=== PATIENT | female | born 1990 | race Caucasian/White ===

== ENCOUNTER 2016-06-10 09:31 | Emergency (ER) | payer BC ==
[2016-06-10 10:31] VITALS: BP 126/83
--- NOTE | 2016-06-10 10:43 | UC ---
Eye Complaint HPI - HPI Summary HPI Summary: complaint of red itchy left eye that started last night this morning started to have purulent drainage from left eye denies pain and vision changes hasn't tried any medication for symptoms currently has URI- nasal congestion cough denies fever, N/V/D taking robitussin with relief of cough - History of Current Complaint Chief Complaint: UCEye Stated Complaint: LEFT EYE COMPLAINT Time Seen by Provider: 06/10/16 10:36 Hx Obtained From: Patient Hx Last Menstrual Period: unknown Aggravating Factor(s): Nothing Alleviating Factor(s): Nothing Associated Signs And Symptoms: Positive: Drainage (Purulent) - Allergies/Home Medications Allergies/Adverse Reactions: Allergies Allergy/AdvReac Type Severity Reaction Status Date / Time avoids opiates Allergy See Comment Uncoded 06/10/16 10:31 Home Medications: Home Medications Implanon 1 unit SUBCUT DAILY 06/10/16 [History Confirmed 06/10/16] PMH/Surg Hx/FS Hx/Imm Hx Previously Healthy: Yes Endocrine History Of: Denies: Diabetes, Thyroid Disease Cardiovascular History Of: Reports: Cardiac Disorders - Palpitations Denies: Hypertension Respiratory History Of: Reports: Asthma Denies: COPD GI/ History Of: Denies: Ulcer - Surgical History Surgical History: Yes Surgery Procedure, Year, and Place: x 1 - Family History Known Family History: Negative: Cardiac Disease, Hypertension, Diabetes - Social History Occupation: Employed Full-time Lives: With Family Alcohol Use: None Substance Use Type: Other Substance Use Comment - Amount & Last Used: Previous opiate addiction, injectables, 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 Smoking Status (MU): Never Smoked Tobacco - Immunization History Most Recent Influenza Vaccination: unknown Most Recent Tetanus Shot: unknown Most Recent Pneumonia Vaccination: none Review of Systems Constitutional: Negative Skin: Negative Eyes: Drainage, Eye Redness ENT: Nasal Discharge Respiratory: Cough Cardiovascular: Negative Gastrointestinal: Negative Genitourinary: Negative Motor: Negative Neurovascular: Negative Musculoskeletal: Negative Neurological: Negative Psychological: Negative All Other Systems Reviewed And Are Negative: Yes Physical Exam Triage Information Reviewed: Yes Appearance: No Pain Distress, Well-Nourished Vital Signs: Initial Vital Signs Temp 99.3 F 06/10/16 10:23 Pulse 62 06/10/16 10:23 Resp 18 06/10/16 10:23 BP 126/83 06/10/16 10:23 Vital Signs Reviewed: Yes Eyes: Positive: Conjunctiva Inflamed - left, Discharge - left ENT: Positive: Pharyngeal erythema, Nasal congestion, TMs normal Neck: Positive: No Lymphadenopathy Respiratory: Positive: Lungs clear, Normal breath sounds, No respiratory distress Cardiovascular: Positive: RRR, No Murmur, Pulses Normal Abdomen Description: Positive: Nontender, Soft Bowel Sounds: Positive: Present Musculoskeletal: Positive: No Edema Neurological: Positive: Alert Psychological Exam: Normal Skin Exam: Normal Eye Complaint Course/Dx - Differential Dx/Diagnosis Differential Diagnosis/HQI/PQRI: Conjunctivitis, Other - URI Provider Diagnoses: URI. conjunctivitis Discharge - Discharge Plan Condition: Stable Disposition: HOME Prescriptions: Tobramycin (Ophth) [Tobrex] 0.3 % OP Q6HR #1 matilde Patient Education Materials: Upper Respiratory Infection (ED), Conjunctivitis ( ED) Referrals: Piper Vogel MD [Medical Doctor] - Additional Instructions: CONJUNCTIVITIS What is Conjunctivitis? Conjunctivitis is redness and swelling of the conjunctiva, the thin transparent layer that lines the inner eyelid and covers the white part of the eye. The three main types of conjunctivitis are infectious, allergic, and chemical. The infectious type, commonly called "pink eye," is caused by a contagious virus or by bacteria. Your body's allergies to pollen, cosmetics, animals or fabrics often bring on allergic conjunctivitis. Irritants like air pollution, noxious fumes and chlorine in swimming pools may produce the chemical form. Symptoms Might Include: More tearing Eye pain Redness in the eyes Gritty feeling in the eyes Itching of the eye Blurred vision Sensitivity to light Crusts that form on the eyelid overnight Treatment Recommendations: Use eye drops or ointment as directed. Do not rub or touch your eyes. Wash your hands frequently. Use cool compresses to relieve pain and itching. Prevention: Do not share eye make-up. Replace eye make-up frequently. Do not share towels, washcloths, etc. Do not share eye drops. Disinfect and handle contact lenses properly. Call Your Doctor or Return Here IF: Your symptoms worsen or do not improve in 3 to 4 days. You have problems with, or loss of, your vision. You have a significant increase in pain. You have any new symptoms that worry you.
== END 2016-06-10 10:59 | disposition home or self-care (01) ==
LOC: UCCORT 09:31
DX: J06.9 Acute upper respiratory infection, unspecified (principal); H10.32 Unspecified acute conjunctivitis, left eye; Z88.5 Allergy status to narcotic agent
CPT/HCPCS: 99212; G0463

== ENCOUNTER 2016-07-27 09:35 | Emergency (ER) | payer BC ==
[2016-07-27 11:11] VITALS: BP 117/67
[2016-07-27] MEDS ORDERED: Albuterol/Ipratropium NEB.SOL* Albuterol 2.5 MG/Ipratropium 0.5 MG 3 ML INH ONE (11:23)
--- NOTE | 2016-07-27 11:23 | UC ---
Throat Pain/Nasal [place] HPI - HPI Summary HPI Summary: complaint of cough and nasal congestion that started approx 3 days ago productive cough- green sputum has felt feverish and some chills occasional body aches headaches- wheezing and coughing worse at night denies sore throat has been using advair has been using albuterol BID for the last 3 days has run out albuterol solution for her nebulizer - History of Current Complaint Chief Complaint: UCGeneralIllness Stated Complaint: head cold & body aches Time Seen by Provider: 07/27/16 11:16 Hx Obtained From: Patient Hx Last Menstrual Period: 01/2015 - has implanon - Allergies/Home Medications Allergies/Adverse Reactions: Allergies Allergy/AdvReac Type Severity Reaction Status Date / Time avoids opiates Allergy See Comment Uncoded 07/27/16 11:04 Home Medications: Home Medications Albuterol HFA INHALER* [Ventolin HFA Inhaler*] 1 - 2 puff INH Q6H PRN 07/27/16 [ History Confirmed 07/27/16] Fluticasone-Salmeterol 100-50* [Advair Diskus 100-50*] 1 puff INH BEDTIME [History Confirmed 07/27/16] PMH/Surg Hx/FS Hx/Imm Hx Previously Healthy: Yes Endocrine History Of: Denies: Diabetes, Thyroid Disease Cardiovascular History Of: Reports: Cardiac Disorders - Palpitations Denies: Hypertension Respiratory History Of: Reports: Asthma Denies: COPD GI/ History Of: Denies: Ulcer - Surgical History Surgical History: Yes Surgery Procedure, Year, and Place: x 1 - Family History Known Family History: Negative: Cardiac Disease, Hypertension, Diabetes - Social History Alcohol Use: None Substance Use Type: None, Other Substance Use Comment - Amount & Last Used: Previous opiate addiction, injectables, 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 Smoking Status (MU): Never Smoked Tobacco - Immunization History Most Recent Influenza Vaccination: unknown Most Recent Tetanus Shot: unknown Most Recent Pneumonia Vaccination: none Review of Systems Constitutional: Fever, Chills Skin: Negative Eyes: Negative ENT: Nasal Discharge Respiratory: Cough Cardiovascular: Negative Gastrointestinal: Negative Genitourinary: Negative Motor: Negative Neurovascular: Negative Musculoskeletal: Negative Neurological: Headache Psychological: Negative All Other Systems Reviewed And Are Negative: Yes Physical Exam Triage Information Reviewed: Yes Appearance: No Pain Distress, Well-Nourished Vital Signs: Initial Vital Signs Temp 98.7 F 07/27/16 11:05 Pulse 73 07/27/16 11:05 Resp 16 07/27/16 11:05 BP 117/67 07/27/16 11:05 Pulse Ox 98 07/27/16 11:05 Vital Signs Reviewed: Yes Eyes: Positive: Conjunctiva Clear ENT: Positive: Pharyngeal erythema, Nasal congestion, Nasal drainage, TMs normal Neck: Positive: No Lymphadenopathy Respiratory: Positive: Rhonchi - in BLL, Wheezing - throughout all lung willis Cardiovascular: Positive: RRR, No Murmur, Pulses Normal Abdomen Description: Positive: Nontender, Soft, Bruit Bowel Sounds: Positive: Present Musculoskeletal Exam: Normal Neurological Exam: Normal Psychological Exam: Normal Skin Exam: Normal Throat Pain/Nasal Course/Dx - Differential Dx/Diagnosis Differential Diagnosis/HQI/PQRI: Influenza, Sinusitis, Tonsillitis, Other - asthma exacerbation Provider Diagnoses: asthma exacerbation Discharge - Discharge Plan Condition: Stable Disposition: HOME Prescriptions: Albuterol 2.5MG/3ML (0.083%)* [Ventolin 2.5 MG/3 ML NEB.ANA MARIA*] 2.5 mg INH Q4H PRN #100 neb.ana maria PRN Reason: Wheezing Albuterol HFA INHALER* [Ventolin HFA Inhaler*] 2 puff INH Q4H PRN #1 mdi PRN Reason: Wheezing Azithromycin TAB* [Zithromax TAB (Z-ANDRES) 250 mg #6 tabs] 2 tab PO .TODAY, THEN 1 DAILY #1 andres predniSONE TAB* [Deltasone TAB*] 50 mg PO DAILY #5 tab Patient Education Materials: Asthma (ED) Referrals: Piper Vogel MD [Primary Care Provider] - Additional Instructions: Please take antibiotic and prednsione as directed Use your albuterol inhaler every 4-6 hours when needed for wheezing, shortness of breath or uncontrolled coughing. Increase fluids and rest Take acetaminophen or ibuprofen for fever or pain Please review your discharge instructions. If your symptoms do not improve please call your primary care provider or return to urgent care.
== END 2016-07-27 12:02 | disposition home or self-care (01) ==
LOC: UCCORT 09:35
DX: J45.901 Unspecified asthma with (acute) exacerbation (principal); Z88.5 Allergy status to narcotic agent; R00.2 Palpitations
CPT/HCPCS: 99212; A9270-GY; G0463

== ENCOUNTER 2016-10-14 10:44 | Emergency (ER) | payer BC ==
--- NOTE | 2016-10-14 11:03 | UC ---
Back Pain HPI - HPI Summary HPI Summary: 26 year old female presents with complains of right sided lower back pain. - History of Current Complaint Stated Complaint: LOWER BACK PAIN Time Seen by Provider: 10/14/16 11:02 Hx Last Menstrual Period: 01/2015 - has implanon - Allergies/Home Medications Allergies/Adverse Reactions: Allergies Allergy/AdvReac Type Severity Reaction Status Date / Time avoids opiates Allergy See Comment Uncoded 10/14/16 11:14 PMH/Surg Hx/FS Hx/Imm Hx - Surgical History Surgical History: Yes Surgery Procedure, Year, and Place: x 1 - Family History Known Family History: Negative: Cardiac Disease, Hypertension, Diabetes - Social History Alcohol Use: None Substance Use Type: None, Other Substance Use Comment - Amount & Last Used: Previous opiate addiction, injectables, 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 Smoking Status (MU): Never Smoked Tobacco - Immunization History Most Recent Influenza Vaccination: unknown Most Recent Tetanus Shot: unknown Most Recent Pneumonia Vaccination: none Review of Systems Constitutional: Negative Skin: Negative Eyes: Negative ENT: Negative Respiratory: Negative Cardiovascular: Negative Gastrointestinal: Negative Genitourinary: Negative Motor: Negative Neurovascular: Negative Musculoskeletal: Other: - right SI joint pain Neurological: Negative Psychological: Negative All Other Systems Reviewed And Are Negative: Yes Physical Exam Triage Information Reviewed: Yes Eye Exam: Normal ENT Exam: Normal Dental Exam: Normal Neck exam: Normal Neck: Positive: 1 Respiratory Exam: Normal Cardiovascular Exam: Normal Abdominal Exam: Normal Musculoskeletal Exam: Normal Musculoskeletal: Positive: Other: - right si joint pain Neurological Exam: Normal Psychological Exam: Normal Skin Exam: Normal Back Pain Course/Dx - Differential Dx/Diagnosis Provider Diagnoses: right SI joint pain Discharge - Discharge Plan Condition: Stable Disposition: HOME Prescriptions: Methocarbamol [Robaxin-750 MG TAB] 750 mg PO Q8H PRN #30 tab PRN Reason: Spasms - Back Methylprednisolone [Medrol Dosepak 4 MG*] 4 mg PO .SEE ANDRES INSTRUCTION #21 tab Patient Education Materials: Acute Low Back Pain (ED) Forms: *Work Release Referrals: Piper Vogel MD [Medical Doctor] - If Needed
[2016-10-14 11:14] VITALS: BP 121/72
[2016-10-14] MEDS ORDERED: methylPREDNISolone 125 MG* 2 ML VIAL IM ONE (11:22)
== END 2016-10-14 11:58 | disposition home or self-care (01) ==
LOC: UCCORT 10:44
DX: M53.3 Sacrococcygeal disorders, not elsewhere classified (principal)
CPT/HCPCS: 96372; 99212; G0463; J2930

== ENCOUNTER 2016-12-18 15:28 | Emergency (ER) | payer BC ==
[2016-12-18 15:53] VITALS: BP 116/55
--- NOTE | 2016-12-18 16:52 | UC ---
Skin Complaint HPI - HPI Summary HPI Summary: Patient presents to the with concern over left lateral leg infection after sustaining a injury with potential FB. She sustained this injury 5 days ago while at work. She states a large piece of wood went through her right lateral lower leg. Penetrated the anterior side and exited the posterior side. She was seen in the ED who dislodged the FB and placed her on 7 days keflex. No imaging was performed. Today she states the area continues to become swollen with her ankle swelling as well. The area had worsening redness yesterday per pictures, but was improved today. She states the swelling and redness are worse after working and standing on her feet all day. The area over the redness is slightly indurated. No drainage is noted. - History of Current Complaint Hx Obtained From: Patient Hx Last Menstrual Period: unknown, implanon ?: No Onset/Duration: Sudden Onset Skin Exposure Onset/Duration: Hours Ago Timing: Constant Onset Severity: Moderate Current Severity: Moderate Pain Intensity: 5 Pain Scale Used: 0-10 Numeric Location: Discrete Character: Redness, Raised, Painful Aggravating Factor(s): Nothing Alleviating Factor(s): Nothing Associated Signs & Symptoms: Positive: Bruising, Tenderness Related History: Trauma, Foreign Body <Julisa Dugan - Last Filed: 12/18/16 17:29> <Mirta Gonzalez - Last Filed: 12/19/16 20:15> - History of Current Complaint Chief Complaint: UCLowerExtremity Time Seen by Provider: 12/18/16 15:54 Stated Complaint: RIGHT LEG INJURY - Allergy/Home Medications Allergies/Adverse Reactions: Allergies Allergy/AdvReac Type Severity Reaction Status Date / Time avoids opiates Allergy See Comment Uncoded 12/18/16 15:53 Home Medications: Home Medications Cephalexin CAP* [Keflex CAP*] 500 mg PO BID 12/18/16 [History Confirmed 12/18/16 ] Review of Systems Constitutional: Negative Skin: Other - see hpi Eyes: Negative Respiratory: Negative Cardiovascular: Negative Motor: Negative Neurovascular: Negative Musculoskeletal: Arthralgia Neurological: Negative Psychological: Negative Is Patient Immunocompromised?: No All Other Systems Reviewed And Are Negative: Yes <Julisa Dugan - Last Filed: 12/18/16 17:29> PMH/Surg Hx/FS Hx/Imm Hx Previously Healthy: Yes - Surgical History Surgical History: Yes Surgery Procedure, Year, and Place: x 1 - Family History Known Family History: Negative: Cardiac Disease, Hypertension, Diabetes - Social History Occupation: Employed Full-time Alcohol Use: None Substance Use Type: None, Other Substance Use Comment - Amount & Last Used: Previous opiate addiction, injectables, 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 Smoking Status (MU): Never Smoked Tobacco Have You Smoked in the Last Year: No - Immunization History Most Recent Influenza Vaccination: unknown Most Recent Tetanus Shot: 12/13/16 Most Recent Pneumonia Vaccination: none <Julisa Dugan Peter - Last Filed: 12/18/16 17:29> Physical Exam Triage Information Reviewed: Yes Appearance: Well-Appearing, Well-Nourished Vital Signs: Initial Vital Signs Temp 98.2 F 12/18/16 15:47 Pulse 67 12/18/16 15:47 Resp 16 12/18/16 15:47 BP 116/55 12/18/16 15:47 Pulse Ox 100 12/18/16 15:47 Vital Signs Reviewed: Yes Eye Exam: Normal Eyes: Positive: Conjunctiva Clear Neck exam: Normal Neck: Positive: Supple, No Lymphadenopathy Respiratory Exam: Normal Respiratory: Positive: Chest non-tender, Lungs clear Abdominal Exam: Normal Abdomen Description: Positive: Nontender Musculoskeletal Exam: Normal Musculoskeletal: Positive: Strength Intact Neurological: Positive: Alert Psychological: Positive: Normal Response To Family, Age Appropriate Behavior Skin: Positive: Other - see HPI <Julisa Dugan Peter - Last Filed: 12/18/16 17:29> Vital Signs: Initial Vital Signs Temp 98.2 F 12/18/16 15:47 Pulse 67 12/18/16 15:47 Resp 16 12/18/16 15:47 BP 116/55 12/18/16 15:47 Pulse Ox 100 12/18/16 15:47 <Mirta Gonzalez - Last Filed: 12/19/16 20:15> Course/Dx - Course Course Of Treatment: Patient is evaluated for leg infection. D/t swelling, bruising and redness, she is given an extra 5 days of keflex. Likely FB remains. No image was taken. She is encouraged to come back to 3-4 days only if symptoms fail to improve with rest, ice and abx. She is Ok with this plan. It was discussed with patient she may need imaging and furhter antibiotics if symptoms persist. The area of induration is small, but may enlarge - return precuations given. - Differential Diagnoses - Skin Complaint Differential Diagnoses: Other - FB, cellulitis - Diagnoses Provider Diagnoses: Cellulitis <Julisa Dugan - Last Filed: 12/18/16 17:29> Discharge <Julisa Dugan - Last Filed: 12/18/16 17:29> <Mirta Gonzalez - Last Filed: 12/19/16 20:15> - Discharge Plan Condition: Stable Disposition: HOME Prescriptions: Cephalexin CAP* [Keflex CAP*] 500 mg PO QID #20 cap MDD 4 Patient Education Materials: Soft Tissue Foreign Body (ED) Forms: *Work Release Referrals: No Primary Care Phys,NOPCP [Primary Care Provider] - Additional Instructions: Return to UC or ED if the leg becomes more swollen or tightness develops in the area or your calf. If you develop any color or temperature changes to the leg or foot - return to the UC immediately I have extended your keflex x 5 days based on the slow recovery and possible FB in the leg As discussed, you may need further imaging if this area of the leg does not improve in 4-5 days. Ibuprofen 600mg three times daily Elevate the leg Ice the leg frequently with intermittent moist heat If the area becomes more red, swollen, drainage from the area, you develop red streaking around the area or you develop a fever - you need to return to the UC immediately. Attestation Statement User Type: Provider - I was available for consult. This patient was seen by the PAYAL. The patient was not presented to, seen by, or examined by me. -Kana <Mirta Gonzalez - Last Filed: 12/19/16 20:15>
== END 2016-12-18 16:57 | disposition home or self-care (01) ==
LOC: UCCORT 15:28
DX: L03.116 Cellulitis of left lower limb (principal)
CPT/HCPCS: 99212; G0463

== ENCOUNTER 2016-12-30 07:54 | Emergency (ER) | payer SELFPAY ==
[2016-12-30 08:05] VITALS: BP 122/55
--- NOTE | 2016-12-30 08:28 | UC ---
Skin Complaint HPI - HPI Summary HPI Summary: 26 yo female with FB removal right calf at [facility] on 12/13. A piece of pallet went through her right calf. Has been on two rounds of antibiotics since then Has had no antibiotics for 4 days Has persistent FB sensation no f/c INJURY OCCURRED AT WORK - History of Current Complaint Chief Complaint: UCWounds Time Seen by Provider: 12/30/16 08:01 Stated Complaint: WOUND CHECK Hx Obtained From: Patient Hx Last Menstrual Period: 12/23/16 Onset/Duration: Sudden Onset Timing: Constant Onset Severity: Severe Current Severity: Mild Pain Intensity: 1 - worse with touch Pain Scale Used: 0-10 Numeric Location: Other - right calf Aggravating Factor(s): Touch Associated Signs & Symptoms: Positive: Tenderness Related History: Trauma, Foreign Body - Allergy/Home Medications Allergies/Adverse Reactions: Allergies Allergy/AdvReac Type Severity Reaction Status Date / Time avoids opiates Allergy See Comment Uncoded 12/30/16 08:05 Review of Systems Constitutional: Negative Skin: Negative Eyes: Negative ENT: Negative Respiratory: Negative Cardiovascular: Negative Gastrointestinal: Negative Genitourinary: Negative Motor: Negative Neurovascular: Negative Musculoskeletal: Myalgia Neurological: Negative Psychological: Negative Is Patient Immunocompromised?: No All Other Systems Reviewed And Are Negative: Yes PMH/Surg Hx/FS Hx/Imm Hx Previously Healthy: Yes - hx opiod addiction Respiratory History: Asthma Other History Of: Hepatitis C - Surgical History Surgical History: Yes Surgery Procedure, Year, and Place: x 1 - Family History Known Family History: Negative: Cardiac Disease, Hypertension, Diabetes - Social History Alcohol Use: None Substance Use Type: None, Other Substance Use Comment - Amount & Last Used: Previous opiate addiction, injectables, 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 Negative: Nasal congestion, Nasal drainage, Tonsillar exudate, Trismus, Muffled/hoarse voice Neck: Positive: Supple, Nontender, No Lymphadenopathy Respiratory: Positive: Lungs clear, Normal breath sounds, No respiratory distress, No accessory muscle use Cardiovascular: Positive: RRR, No Murmur Musculoskeletal: Positive: Other: - see image Neurological: Positive: Alert Psychological Exam: Normal Skin Exam: Other - see image Course/Dx - Course Course Of Treatment: I call [facility] ED. Discussed case with Thomas Chang NP. Discussed my concerns re retained FB. Pt refused EMS transfer. AMA sign on for that reason. She states she will go straight to the ER. - Diagnoses Provider Diagnoses: Suspected right calf retained foreign body Discharge - Discharge Plan Condition: Stable Disposition: TRANS HIGHER LVL OF CARE FAC Images Front/Back of Body, Lg ([place]): 1 - entrance 2 - exit- woody induration between entrance and exit site
== END 2016-12-30 08:27 | disposition short-term general hospital (02) ==
LOC: UCCORT 07:54
DX: Z48.00 Encounter for change or removal of nonsurgical wound dressing (principal)
CPT/HCPCS: 99212; G0463